=== PATIENT | male | born 1975 | race Caucasian/White ===

== ENCOUNTER 2020-03-29 13:16 | Emergency (ER) | payer OTHER ==
[2020-03-29 13:25] VITALS: TEMP 98.5
[2020-03-29 14:19] VITALS: BP 148/110; PULSE 73; RESP 22
--- NOTE | 2020-03-29 14:29 | ED ---
General Adult HPI - General Chief complaint: Skin/Abscess/Foreign Body Stated complaint: Blisters on feet Time Seen by Provider: 03/29/20 13:31 Source: patient, RN notes reviewed, old records reviewed Mode of arrival: ambulatory Limitations: no limitations - History of Present Illness Initial comments: 44-year-old male patient with the chief complaint of blisters to the heels of his feet. Also has some between the toes on the left side. Patient reports that he has bad shoes and is always on his feet at work. He believes this is the cause. He declines any other complaints. Systemic: Pt denies fatigue, fever/chills, rash. Pt denies weakness, night sweats, weight loss. Neuro: Pt denies headache, visual disturbances, syncope or pre-syncope. HEENT: Pt denies ocular discharge or irritation, otalgia, rhinorrhea, pharyngitis or notable lymphadenopathy. Cardiopulmonary: Pt denies chest pain, SOB, heart palpitations, dyspnea on exertion. Abdominal/GI: Pt denies abdominal pain, n/v/d. : Pt denies dysuria, burning w/ urination, frequency/urgency. Denies new onset urinary or bowel incontinence. MSK: Pt denies myalgia, loss of strength or function in extremities. Neuro: Pt denies new onset weakness, paresthesias. - Related Data Previous Rx's Medication Instructions Recorded Lisinopril 20 mg PO DAILY 14 Days #14 tab 03/29/20 Allergies Allergy/AdvReac Type Severity Reaction Status Date / Time Penicillins Allergy Swelling Verified 03/29/20 13:25 Review of Systems ROS Statement: Those systems with pertinent positive or pertinent negative responses have been documented in the HPI. ROS Other: All systems not noted in ROS Statement are negative. Past Medical History Past Medical History: Hypertension History of Any Multi-Drug Resistant Organisms: None Reported Past Psychological History: Anxiety Smoking Status: Current every day smoker Past Alcohol Use History: None Reported Past Drug Use History: Marijuana General Exam - General Exam Comments Initial Comments: Constitutional: NAD, AOX3, Pt has pleasant affect. HEENT: NC/AT, trachea midline, neck supple, no lymphadenopathy. External ears appear normal, without discharge. Mucous membranes moist. There is no scleral icterus. No pallor noted. Cardiopulmonary: RRR, no murmurs, rubs or gallops, no JVD noted. Lungs CTAB in anterior and posterior potts. No peripheral edema. Abdominal exam: Abdomen soft and non-distended. Abdomen non-tender to palpation in all 4 quadrants. Bowel sounds active in LLQ. No hepatosplenomegaly. No ecchymosis Neuro: CN II-XII grossly intact. No nuchal rigidity. No raccon eyes, no bell sign. MSK: Blisters are noted on heels bilaterally. There is a 2 blisters between the second and third toe on the left side. There is no rash. Skin is examined without any other dermatologic findings. No oropharyngeal involvement.. Full active ROM in upper and lower extremities. Limitations: no limitations Course Vital Signs 03/29/20 03/29/20 13:23 14:11 Temperature 98.5 F Pulse Rate 108 H 73 Respiratory 18 22 Rate Blood Pressure 186/93 148/110 O2 Sat by Pulse 98 98 Oximetry Medical Decision Making - Medical Decision Making 44-year-old male patient was ED for evaluation of blisters on feet. These do appear to be contact related due to him being at work. I advised him to get new shoes and will provide him a note for work for 3 days to allow the area to rest. Patient's blood pressure was found be elevated. Reports that he has not had his blood pressure medication as he is noted, does not have a doctor. I will prescribe the patient 2 weeks of his home dose of lisinopril and will provide him outpatient follow-up with a primary care provider. Will return to ER if condition worsens. Case discussed with Dr. Sharif. Disposition Clinical Impression: Blister Disposition: HOME SELF-CARE Condition: Stable Instructions (If sedation given, give patient instructions): Blister (ED) Additional Instructions: Recommend getting new shoes and socks. Rest the area for the next couple of da ys. Follow-up with primary care provider tomorrow. Return to ER if condition worsens. Prescriptions: Lisinopril 20 mg PO DAILY 14 Days #14 tab Is patient prescribed a controlled substance at d/c from ED?: No Referrals: None,Stated [Primary Care Provider] - 1-2 days Diego Bolivar MD [REFERRING] - 1-2 days
== END 2020-03-29 14:56 | disposition home or self-care (01) ==
LOC: EC 13:16
DX: S90.822A Blister (nonthermal), left foot, initial encounter (principal); S90.821A Blister (nonthermal), right foot, initial encounter; I10 Essential (primary) hypertension; F17.200 Nicotine dependence, unspecified, uncomplicated; Z88.0 Allergy status to penicillin; X58.XXXA Exposure to other specified factors, initial encounter
CPT/HCPCS: 99283

== ENCOUNTER 2020-08-03 23:25 | Inpatient (IN) | payer MEDICAID, OTHER ==
--- NOTE | 2020-08-04 00:24 | ED ---
Psych HPI - General Chief Complaint: Psychiatric Symptoms Stated Complaint: Mental health Time Seen by Provider: 08/03/20 23:43 Source: patient Mode of arrival: ambulatory - History of Present Illness Initial Comments: this patient is a 44-year-old man who presents with complaint of depressed mood and having suicidal thoughts. The patient states that he was in a relationship and this ended today. Patient is feeling didn't. MD Complaint: suicidal ideation, feels depressed -: hour(s) Associated Psychiatric Symptoms: none Quality: constant Improves With: none Worsens With: none Context: significant life stressor - Related Data Previous Rx's Medication Instructions Recorded lisinopriL 20 mg PO DAILY 14 Days #14 tab 03/29/20 Allergies Allergy/AdvReac Type Severity Reaction Status Date / Time Penicillins Allergy Swelling Verified 08/03/20 23:40 Review of Systems ROS Statement: Those systems with pertinent positive or pertinent negative responses have been documented in the HPI. ROS Other: All systems not noted in ROS Statement are negative. Constitutional: Denies: fever, chills Respiratory: Denies: cough, dyspnea Cardiovascular: Denies: chest pain, palpitations Gastrointestinal: Denies: abdominal pain, vomiting, diarrhea, constipation Genitourinary: Denies: dysuria, hematuria Musculoskeletal: Denies: back pain Skin: Denies: rash Neurological: Denies: headache, weakness, numbness Past Medical History Past Medical History: Hypertension Additional Past Medical History / Comment(s): pneumothorax History of Any Multi-Drug Resistant Organisms: None Reported Past Surgical History: No Surgical Hx Reported Past Psychological History: Anxiety Smoking Status: Current every day smoker Past Alcohol Use History: None Reported Past Drug Use History: Marijuana General Exam Limitations: no limitations General appearance: alert, in no apparent distress Head exam: Present: atraumatic, normocephalic Neck exam: Present: normal inspection Respiratory exam: Present: normal lung sounds bilaterally. Absent: respiratory distress, wheezes, rales, rhonchi, stridor Cardiovascular Exam: Present: regular rate, normal rhythm, normal heart sounds. Absent: systolic murmur, diastolic murmur, rubs, gallop GI/Abdominal exam: Present: soft. Absent: distended, tenderness, guarding, rebound, rigid, mass Neurological exam: Present: alert Psychiatric exam: Present: depressed, suicidal ideation. Absent: agitated, anxious, flat affect, manic, homicidal ideation Skin exam: Present: warm, dry, intact, normal color. Absent: rash Course Vital Signs 08/03/20 23:35 Temperature 98.1 F Pulse Rate 95 Respiratory 20 Rate Blood Pressure 155/68 O2 Sat by Pulse 99 Oximetry Medical Decision Making - Lab Data Lab Results 08/04/20 08/04/20 Range/Units 00:10 00:10 Urine Color Yellow Urine Appearance Clear (Clear) Urine pH 5.5 (5.0-8.0) Ur Specific [place] 1.019 (1.001-1.035) Urine Protein Negative (Negative) Urine Glucose (UA) Negative (Negative) Urine Ketones Negative (Negative) Urine Blood Negative (Negative) Urine Nitrite Negative (Negative) Urine Bilirubin Negative (Negative) Urine Urobilinogen <2.0 (<2.0) mg/dL Ur Leukocyte Esterase Negative (Negative) Urine Opiates Screen Detected H (NotDetected) Ur Oxycodone Screen Not Detected (NotDetected) Urine Methadone Screen Not Detected (NotDetected) Ur Propoxyphene Screen Not Detected (NotDetected) Ur Barbiturates Screen Not Detected (NotDetected) U Tricyclic Antidepress Not Detected (NotDetected) Ur Phencyclidine Scrn Not Detected (NotDetected) Ur Amphetamines Screen Not Detected (NotDetected) U Methamphetamines Scrn Not Detected (NotDetected) U Benzodiazepines Scrn Detected H (NotDetected) Urine Cocaine Screen Not Detected (NotDetected) U Marijuana (THC) Screen Detected H (NotDetected) Disposition Clinical Impression: Suicidal ideation, Mood disorder Disposition: ADMITTED IP TO THIS [facility] Condition: Fair Is patient prescribed a controlled substance at d/c from ED?: No
[2020-08-04 00:51] LABS: Amphetamine Screen,Urine Not Detected (NotDetected); Barbiturate Screen,Urine Not Detected (NotDetected); Benzodiazepines Screen,Urine Detected (NotDetected); Cocaine Screen,Urine Not Detected (NotDetected); Methadone Screen, Urine Not Detected (NotDetected); Opiate Screen,Urine Detected (NotDetected); Oxycodone Screen, Urine Not Detected (NotDetected); Phencyclidine Screen,Urine Not Detected (NotDetected); Tricyclic Antidepressant,Urine Not Detected (NotDetected); Urn Cannabinoid Scrn Detected (NotDetected)
[2020-08-04] MEDS ORDERED: ZIPRASIDONE 20 MG VIAL IM PRN (03:40)
[2020-08-04] MEDS ORDERED: MAG HYDROX/AL HYDROX/SIMETH 30 ML CUP PO PRN (03:40)
[2020-08-04] MEDS ORDERED: MAGNESIUM HYDROXIDE 2,400 MG/10 ML CUP PO PRN (03:40)
[2020-08-04] MEDS ORDERED: LORazepam 2 MG/ML INJ IM PRN (03:44)
[2020-08-04 04:10] LABS: Appearance,Urine Clear (Clear); Bilirubin,Urine Negative (Negative); Blood,Urine Negative (Negative); Color,Urine Yellow; Glucose,Urine (UA) Negative (Negative); Ketones,Urine Negative (Negative); Leukocyte Esterase,Urine Negative (Negative); Nitrite,Urine Negative (Negative); PH, Urine 5.5 (5.0-8.0); Protein,Urine Negative (Negative); Specific Gravity,Urine 1.019 (1.001-1.035); Urobilinogen,Urine <2.0 mg/dL (<2.0)
[2020-08-04 09:20] LABS: Basophils # (A) 0.1 k/uL (0-0.2); Basophils % (A) 1 %; Eosinophils # (A) 0.2 k/uL (0-0.7); Eosinophils % (A) 1 %; HCT 47.2 % (39.0-53.0); HGB 15.4 gm/dL (13.0-17.5); Lymphocytes % (A) 19 %; MCH 32.7 pg (25.0-35.0); MCHC 32.6 g/dL (31.0-37.0); MCV 100.1 fL (80.0-100.0); Monocytes # (A) 0.7 k/uL (0-1.0); Monocytes % (A) 7 %; Neutrophils # (A) 7.4 k/uL (1.3-7.7); Neutrophils % (A) 71 %; Platelet Count 238 k/uL (150-450); RBC 4.72 m/uL (4.30-5.90); RDW 12.7 % (11.5-15.5); WBC 10.4 k/uL (3.8-10.6)
[2020-08-04 09:53] LABS: ALT 21 U/L (4-49); AST 27 U/L (17-59); African American GFR (CKD) >90 (>60 ml/min/1.73 sqM); Albumin 3.8 g/dL (3.5-5.0); Alkaline Phosphatase 75 U/L (38-126); Anion Gap 8 mmol/L; Blood Urea Nitrogen 9 mg/dL (9-20); Carbon Dioxide 24 mmol/L (22-30); Chloride 105 mmol/L (98-107); Glucose 101 mg/dL (74-99); Non-African American GFR(CKD) >90 (>60 ml/min/1.73 sqM); Potassium 3.9 mmol/L (3.5-5.1); Sodium 137 mmol/L (137-145); Total Bilirubin 0.7 mg/dL (0.2-1.3); Total Protein 6.4 g/dL (6.3-8.2)
[2020-08-04] MEDS: NICOTINE 14MG/24HR PATCH TRANSDERM SCH (12:45)
[2020-08-04] MEDS ORDERED: OLANZapine 7.5 MG TAB PO ONE (21:00)
[2020-08-04] MEDS: traZODone HCL 50 MG TAB PO SCH (21:33)
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
[2020-08-04] MEDS: lisinopriL 20 MG TAB PO SCH (22:11)
[2020-08-05] MEDS ORDERED: OLANZapine 10 MG TAB PO SCH (09:00)
[2020-08-05] MEDS: NICOTINE 14MG/24HR PATCH TRANSDERM SCH (09:42)
[2020-08-05] MEDS: lisinopriL 20 MG TAB PO SCH (10:13)
[2020-08-05] MEDS: LORazepam 1 MG TAB PO PRN ×2 (10:15→18:45)
[2020-08-05] MEDS ORDERED: OLANZapine 10 MG TAB PO ONE (19:00)
[2020-08-05] MEDS: OLANZapine 10 MG TAB PO SCH (21:29)
[2020-08-05] MEDS: traZODone HCL 50 MG TAB PO SCH (21:29)
--- NOTE | 2020-08-06 04:32 | PN ---
PROGRESS NOTE DATE OF SERVICE: 08/05/2020. CHIEF COMPLAINT: The patient was depressed he had suicide thoughts that scared him. INTERVAL HISTORY: Patient has been doing fair. He had a quiet day yesterday. The patient mostly isolated to his room. He did not attend groups yesterday. He continued to report a lot of anxiety. He felt very distressed over the circumstances that he was dealing with. He slept fair last night. Today he has been up. He did attend one group at 1530 and seem to engage appropriately in that group. He did not attend any of the earlier groups in the day. When I talked to him, he said he was having high anxiety and that has been something he has been struggling with all day today and yesterday. He acknowledges that he has a lot to deal with with the events that have occurred and the losses he is experiencing. He feels medication has helped some. He did not otherwise voice other problems or concerns. He tolerates his psychotropic medications. MENTAL STATUS: Patient was in his room lying down when I initially saw him. He gave fair eye contact. Psychomotor activity was slowed. He answered questions with brief responses. He did not say a lot. His affect was intense and anxious. His mood depressed he was significantly distressed. There was no indication of thought disorder. He voiced no thoughts of harm. Cognition was clear. ASSESSMENT: I will continue the current diagnosis and treatment plan. The patient continues with very high anxiety and panic symptoms in part related to very high stress circumstances he has been dealing with. I will increase his Zyprexa to 10 mg 3 times a day. I reviewed medication issues with the patient. We kept the discussion limited as he was feeling quite stressed and to the point of feeling panicky. We will focus on stabilization and discharge planning. MMODL / IJN: [id number] / MTDD
[2020-08-06] MEDS: lisinopriL 20 MG TAB PO SCH (08:46)
[2020-08-06] MEDS: NICOTINE 14MG/24HR PATCH TRANSDERM SCH (08:46)
[2020-08-06] MEDS: LORazepam 1 MG TAB PO PRN (08:46)
[2020-08-06] MEDS: OLANZapine 10 MG TAB PO SCH (08:46)
[2020-08-06] MEDS ORDERED: hydrOXYzine HCL 50 MG/ML 1 ML VIAL IM PRN (09:17)
[2020-08-06] MEDS: hydrOXYzine pamoate 25 MG CAP PO PRN ×3 (10:08→21:25)
--- NOTE | 2020-08-06 10:20 | P.PN ---
Progress Note - Text Progress Note Date: 08/06/20 Interval History: Patient was seen resting in bed and was directable and agreeable to speak with fiction and nonfiction prose writer in the office. Patient expresses his primary concern is his elevated anxiety and depression. He reports that he is having problems with racing thoughts secondary to his anxiety and worry which is causing him problems with planning out his next steps after discharge. He reports that this current episode was precipitated by a relationship that did not go well prior to this admission. At this time, the patient does endorses suicidal ideation but with no plan or intention at this time. He denies any homicidal ideation, intention, and/or plan. Patient denies any auditory, visual hallucinations and denies any paranoia or delusions. Patient denies any side effects from the medications and has been compliant with meds. Mental Status Exam: General Appearance: Patient appears to be stated age is alert, directable, and cooperative. Behavior: Patient is calmly seated without any agitated behavior. Psychomotor activity is elevated. Speech: Patient's speech is fluent and nonpressured. Mood/Affect: Mood is very anxious, affect is congruent and nervous. Suicidality/Homicidality: Patient reports suicidal ideation. He denies any homicidal ideation, intention, and/or plan. Perceptions: Patient denies any visual hallucinations and denies any auditory hallucinations Though content/process: There is no evidence of any delusional thought content and thought process is linear and goal-directed. Memory and concentration: AOX3, grossly intact for the purposes of this session Judgment and insight: Improving mildly Assessment Major Depressive disorder, recurrent, severe, with anxious features. Tobacco use disorder. Plan: -Patient continues to meet criteria for inpatient psychiatric admission for symptom stabilization and safety. Patient has signed adult voluntary form and medication consent and was placed in patient's chart. -Medications: We will change Ativan when necessary to Vistaril due to patient's history of substance use. We will start doxepin 25 mg by mouth twice a day for anxiety/depression We will decrease Zyprexa to 10 mg by mouth at bedtime. We will likely transition patient to Abilify instead of Zyprexa for augmentation of his an tidepressant and treatment of racing thoughts. -When necessary Vistaril and Geodon for agitation/aggression. -NRT - nicotine patch -SW on board for discharge planning. Encouraged the patient to participate in milieu.
[2020-08-06] MEDS: traZODone HCL 50 MG TAB PO SCH (20:53)
[2020-08-06] MEDS: DOXEPIN 25 MG CAP PO SCH (20:53)
[2020-08-06] MEDS ORDERED: OLANZapine 10 MG TAB PO SCH (21:00)
[2020-08-07] MEDS: DOXEPIN 25 MG CAP PO SCH ×2 (08:34→20:39)
[2020-08-07] MEDS: NICOTINE 14MG/24HR PATCH TRANSDERM SCH (08:34)
[2020-08-07] MEDS: lisinopriL 20 MG TAB PO SCH (08:34)
[2020-08-07] MEDS: hydrOXYzine pamoate 25 MG CAP PO PRN ×3 (08:34→20:39)
--- NOTE | 2020-08-07 09:35 | P.PN ---
Progress Note - Text Progress Note Date: 08/07/20 Interval History: Patient was seen resting in bed and was directable and agreeable to speak with the fiction and nonfiction prose writer with no one else present in his room. Patient continues to express elevated anxiety. He reports he is feeling stressed out as he is uncertain where he will live. He does report that his anxiety is slightly better as he was able to plan out a course of action. Patient reports that he plans on going to [facility] for rehab for his history of methamphetamine and heroin use. He is not reporting any auditory or visual hallucinations. He denies any delusions. He has been adherent his medications and denies any side effects at this time. Mental Status Exam: General Appearance: Patient appears to be stated age is alert, directable, and cooperative. Behavior: Patient is calmly seated without any agitated behavior. Psychomotor activity is elevated. Speech: Patient's speech is fluent and nonpressured. Mood/Affect: Mood is very anxious, affect is congruent and nervous. Suicidality/Homicidality: Patient reports suicidal ideation. He denies any homicidal ideation, intention, and/or plan. Perceptions: Patient denies any visual hallucinations and denies any auditory hallucinations Though content/process: There is no evidence of any delusional thought content and thought process is linear and goal-directed. Memory and concentration: AOX3, grossly intact for the purposes of this session Judgment and insight: Improving mildly Assessment Major Depressive disorder, recurrent, severe, with anxious features. Tobacco use disorder. Plan: -Patient continues to meet criteria for inpatient psychiatric admission for symptom stabilization and safety. Patient has signed adult voluntary form and medication consent and was placed in patient's chart. -Medications: Change doxepin to 50 mg by mouth at bedtime for anxiety/depression Change Zyprexa to Abilify 10 mg by mouth daily for mood augmentation. -When necessary Vistaril and Geodon for agitation/aggression. -NRT - nicotine patch -SW on board for discharge planning. Encouraged the patient to participate in milieu.
[2020-08-07] MEDS: traZODone HCL 50 MG TAB PO SCH (20:40)
[2020-08-08] MEDS: ARIPiprazole 10 MG TAB PO SCH (08:49)
[2020-08-08] MEDS: NICOTINE 14MG/24HR PATCH TRANSDERM SCH (08:49)
[2020-08-08] MEDS: lisinopriL 20 MG TAB PO SCH (08:49)
[2020-08-08] MEDS: hydrOXYzine pamoate 25 MG CAP PO PRN ×3 (08:51→20:37)
--- NOTE | 2020-08-08 09:49 | P.PN ---
Progress Note - Text Progress Note Date: 08/08/20 Interval History: Patient was seen resting in bed and was directable and agreeable to speak with the scientific technical writer with no one else present in his room. Patient reports his anxiety has decreased but continues to be elevated at bedtime causing him to have difficulty sleeping. He reports that his mind begins to race and he feels extremely wound up and unable to sleep. He reports no suicidal or homicidal ideation, intention, and/or plan. He reports that during the day his mood symptoms appear to be better controlled. He is future-oriented and has sent a packet to [facility] for rehab. He denies any auditory or visual hallucinations. He reports no paranoia or other delusions. Mental Status Exam: General Appearance: Patient appears to be stated age is alert, directable, and cooperative. Behavior: Patient is calmly seated without any agitated behavior. Psychomotor activity is normal. Speech: Patient's speech is fluent and nonpressured. Mood/Affect: Mood is anxious, affect is congruent but more euthymic with appropriate range. Suicidality/Homicidality: Patient reports suicidal ideation. He denies any homicidal ideation, intention, and/or plan. Perceptions: Patient denies any visual hallucinations and denies any auditory hallucinations Though content/process: There is no evidence of any delusional thought content and thought process is linear and goal-directed. Memory and concentration: AOX3, grossly intact for the purposes of this session Judgment and insight: Improving mildly Assessment Major Depressive disorder, recurrent, severe, with anxious features. Tobacco use disorder. Methamphetamine use disorder Heroin use disorder Plan: -Patient continues to meet criteria for inpatient psychiatric admission for symptom stabilization and safety. Patient has signed adult voluntary form and medication consent and was placed in patient's chart. -Medications: Continue doxepin 50 mg by mouth at bedtime for anxiety/depression Continue abilify 10 mg by mouth daily for mood augmentation Change trazodone to Remeron 15 mg by mouth at bedtime for depression/insomnia -When necessary Vistaril and Geodon for agitation/aggression. -NRT - nicotine patch -SW on board for discharge planning. Encouraged the patient to participate in milieu.
[2020-08-08] MEDS: DOXEPIN 25 MG CAP PO SCH (20:36)
[2020-08-08] MEDS ORDERED: MIRTAZAPINE 15 MG TAB PO SCH (21:00)
[2020-08-09] MEDS: hydrOXYzine pamoate 25 MG CAP PO PRN ×3 (07:27→20:17)
[2020-08-09] MEDS: NICOTINE 14MG/24HR PATCH TRANSDERM SCH (08:39)
[2020-08-09] MEDS: ARIPiprazole 10 MG TAB PO SCH (08:39)
[2020-08-09] MEDS: lisinopriL 20 MG TAB PO SCH (08:40)
[2020-08-09] MEDS: ACETAMINOPHEN TAB 325 MG TAB PO PRN (08:43)
--- NOTE | 2020-08-09 09:39 | P.PN ---
Progress Note - Text Progress Note Date: 08/09/20 Interval History: Patient was seen wandering the hallways and was directable and agreeable to speak with the health underwriter with no one else present in his room. Patient continues to endorse elevated anxiety. He states that his racing thoughts have decreased but he continues to be very anxious and that his anxiety is particularly worse at night. He reports that last night he was unable to sleep as compared to the night before. He is to express that he feels extremely wound up and that the worse things will happen. He states that he would like to go to rehab. He is not endorsing any suicidal or homicidal ideation, intention, and/or plan at this time. He is reporting no auditory or visual hallucinations. He denies any issues with appetite and he has been adherent with his medications and denies any side effects at this time. Mental Status Exam: General Appearance: Patient appears to be stated age is alert, directable, and cooperative. Behavior: Patient is calmly seated without any agitated behavior. Psychomotor activity is normal. Speech: Patient's speech is fluent and nonpressured. Mood/Affect: Mood is anxious, affect is congruent with appropriate range. Suicidality/Homicidality: He denies any suicidal or homicidal ideation, intention, and/or plan. Perceptions: Patient denies any visual hallucinations and denies any auditory hallucinations Though content/process: There is no evidence of any delusional thought content and thought process is linear and goal-directed. Memory and concentration: AOX3, grossly intact for the purposes of this session Judgment and insight: Improving mildly Assessment Major Depressive disorder, recurrent, severe, with anxious features. Tobacco use disorder. Methamphetamine use disorder Heroin use disorder Plan: -Patient continues to meet criteria for inpatient psychiatric admission for symptom stabilization and safety. Patient has signed adult voluntary form and medication consent and was placed in patient's chart. -Medications: Increase doxepin to 75 mg by mouth at bedtime for anxiety/depression Continue abilify 10 mg by mouth daily for mood augmentation Increase Remeron to 30 mg by mouth at bedtime for depression/insomnia -As needed Vistaril be increased to 50 mg to address anxiety -When necessary Vistaril and Geodon for agitation/aggression. -NRT - nicotine patch -SW on board for discharge planning. Encouraged the patient to participate in milieu.
[2020-08-09 15:41] VITALS: BMI 19.5
[2020-08-09] MEDS: MIRTAZAPINE 15 MG TAB PO SCH (20:17)
[2020-08-09] MEDS ORDERED: DOXEPIN 25 MG CAP PO SCH (21:00)
[2020-08-10] MEDS: NICOTINE 14MG/24HR PATCH TRANSDERM SCH (08:28)
[2020-08-10] MEDS: lisinopriL 20 MG TAB PO SCH (08:28)
[2020-08-10] MEDS: ARIPiprazole 10 MG TAB PO SCH (08:28)
[2020-08-10] MEDS: hydrOXYzine pamoate 25 MG CAP PO PRN ×2 (08:28→14:35)
--- NOTE | 2020-08-10 10:38 | P.PN ---
Progress Note - Text Progress Note Date: 08/10/20 Interval History: Patient was seen wandering the hallways and was directable and agreeable to speak with the sign writer letterer or painter with no one else present in his room. Patient continues to endorse elevated anxiety. Despite having documented sleep, the patient reports that he wakes up multiple times at night. He reports that he would wake up every 45 minutes or so and would take half an hour at least to fall asleep again. He is not reporting any suicidal or homicidal ideation, intention, and/or plan. He reports auditory or visualizations. He denies any side effects of his medications. He reports that he has no place to go and does not feel safe being discharged as he would end up using. He states that he wants to go straight to rehab from this facility and is scheduled to be picked up on Thursday. Mental Status Exam: General Appearance: Patient appears to be stated age is alert, directable, and cooperative. Behavior: Patient is calmly seated without any agitated behavior. Psychomotor activity is slightly elevated. Speech: Patient's speech is fluent and nonpressured. Mood/Affect: Mood is anxious, affect is congruent, nervous with appropriate range. Suicidality/Homicidality: He denies any suicidal or homicidal ideation, intention, and/or plan. Perceptions: Patient denies any visual hallucinations and denies any auditory hallucinations Though content/process: There is no evidence of any delusional thought content and thought process is linear and goal-directed. Memory and concentration: AOX3, grossly intact for the purposes of this session Judgment and insight: Improving mildly Assessment Major Depressive disorder, recurrent, severe, with anxious features. Tobacco use disorder. Methamphetamine use disorder Heroin use disorder Plan: -Patient continues to meet criteria for inpatient psychiatric admission for symptom stabilization and safety. Patient has signed adult voluntary form and medication consent and was placed in patient's chart. -Medications: Increase doxepin to 100 mg by mouth at bedtime for anxiety/depression Continue abilify 10 mg by mouth daily for mood augmentation Continue Remeron to 30 mg by mouth at bedtime for depression/insomnia -As needed Vistaril 50 mg to address anxiety -When necessary Vistaril and Geodon for agitation/aggression. -NRT - nicotine patch -SW on board for discharge planning. Encouraged the patient to participate in milieu.
[2020-08-10] MEDS: MIRTAZAPINE 15 MG TAB PO SCH (20:02)
[2020-08-10] MEDS: DOXEPIN 25 MG CAP PO SCH (20:02)
[2020-08-11] MEDS: NICOTINE 14MG/24HR PATCH TRANSDERM SCH (09:06)
[2020-08-11] MEDS: ARIPiprazole 10 MG TAB PO SCH (09:06)
[2020-08-11] MEDS: lisinopriL 20 MG TAB PO SCH (09:06)
--- NOTE | 2020-08-11 09:51 | P.PN ---
Progress Note - Text Progress Note Date: 08/11/20 Interval history: Patient was seen wandering the hallways and was directable and agreeable to speak with typewriter aligner. Patient reports that he is doing well. He reports that he is excited to be discharged on Thursday and to start rehab. He reports that he was able to sleep well last night and although he had difficulty falling asleep, he has been able to sleep throughout the night. He reports continued anxiety throughout the day but states that it is manageable. At this time patient denies any suicidal or homicidal ideations intent or plan. Denies any Auditory or visual hallucinations. Patient denies any side effects from the medications and has been compliant with meds. Mental status exam: General Appearance: Patient appears to be stated age is alert, directable, and cooperative. Behavior: No agitated behavior. Patient is calm and directable Speech: Patient's speech is fluent and nonpressured. Mood/Affect: Mood is improving mildly, affect is congruent and constricted. Suicidality/Homicidality: Patient denies having any suicidal or homicidal ideation intent or plan. Perceptions: Patient denies any auditory or visual hallucinations. Though content/process: There is no evidence of any delusional thought content and thought process is linear and goal-directed. Memory and concentration: AOX3, grossly intact for the purposes of this session Judgment and insight: improving mildly Assessment/Plan: Continue with current diagnosis. Patient continues to meet criteria for inpatient psychiatric admission for symptom stabilization and safety.Patient will be maintained on current psychotropic medication regimen. Monitor for medication compliance and for any psychotropic medication side effects. Will continue to monitor ongoing response to treatment. Encouraged participation in milieu. Anticipate discharge on Thursday.
[2020-08-11] MEDS: DOXEPIN 25 MG CAP PO SCH (20:08)
[2020-08-11] MEDS: MIRTAZAPINE 15 MG TAB PO SCH (20:08)
[2020-08-12] MEDS: ARIPiprazole 10 MG TAB PO SCH (07:52)
[2020-08-12] MEDS: NICOTINE 14MG/24HR PATCH TRANSDERM SCH (07:52)
[2020-08-12] MEDS: lisinopriL 20 MG TAB PO SCH (07:52)
--- NOTE | 2020-08-12 09:17 | P.PN ---
Progress Note - Text Progress Note Date: 08/12/20 Interval history: Patient was seen wandering the hallways and was directable and agreeable to speak with real estate underwriter. Patient reports that he is doing well. He is currently not reporting any significant symptoms of depression at this time. He is reporting no suicidal or homicidal ideation, intention, and/or plan. He reports that anxiety is elevated slightly but attributes this to his discharge and going to rehab. He is not reporting any issues with sleep or appetite at this time. He denies any auditory or visual hallucinations. He reports no paranoia or delusions. His been adherent with his medications and denies any side effects. He has not been taking any Vistaril as he feels like that medication makes him feel more "jittery." Mental status exam: General Appearance: Patient appears to be stated age is alert, directable, and cooperative. Behavior: No agitated behavior. Patient is calm and directable Speech: Patient's speech is fluent and nonpressured. Mood/Affect: Mood is "pretty good." Affect is euthymic to bright. Suicidality/Homicidality: Patient denies having any suicidal or homicidal ideation intent or plan. Perceptions: Patient denies any auditory or visual hallucinations. Though content/process: There is no evidence of any delusional thought content and thought process is linear and goal-directed. Memory and concentration: AOX3, grossly intact for the purposes of this session Judgment and insight: improving mildly Assessment/Plan: Continue with current diagnosis. Patient continues to meet criteria for inpatient psychiatric admission for symptom stabilization and safety. Patient will be maintained on current psychotropic medication regimen. Monitor for medication compliance and for any psychotropic medication side effects. Will continue to monitor ongoing response to treatment. Encouraged participation in milieu. Anticipate discharge on Thursday.
[2020-08-12] MEDS: ACETAMINOPHEN TAB 325 MG TAB PO PRN (20:15)
[2020-08-12] MEDS: DOXEPIN 25 MG CAP PO SCH (20:16)
[2020-08-12] MEDS: MIRTAZAPINE 15 MG TAB PO SCH (20:16)
[2020-08-12 20:29] VITALS: TEMP 97.1
[2020-08-13] MEDS: NICOTINE 14MG/24HR PATCH TRANSDERM SCH (08:10)
[2020-08-13] MEDS: lisinopriL 20 MG TAB PO SCH (08:10)
[2020-08-13] MEDS: ARIPiprazole 10 MG TAB PO SCH (08:10)
[2020-08-13 08:28] VITALS: BP 139/92; PULSE 95; RESP 16
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
== END 2020-08-13 09:39 | DRG 885 ==
LOC: EC 23:25 → 3MHU 08-04 03:28
PROVIDERS: ADMIT Psychiatry & Neurology Psychiatry; ATTEND Psychiatry & Neurology Psychiatry
DX: F33.2 Major depressive disorder, recurrent severe without psychotic features (principal); R45.851 Suicidal ideations; F15.10 Other stimulant abuse, uncomplicated; F11.21 Opioid dependence, in remission; Z20.828 Contact with and (suspected) exposure to other viral communicable diseases; F41.9 Anxiety disorder, unspecified; I10 Essential (primary) hypertension; G47.00 Insomnia, unspecified; F12.10 Cannabis abuse, uncomplicated; F17.210 Nicotine dependence, cigarettes, uncomplicated; Z71.6 Tobacco abuse counseling; Z79.899 Other long term (current) drug therapy; Z59.0 Homelessness; Z87.09 Personal history of other diseases of the respiratory system; Z62.810 Personal history of physical and sexual abuse in childhood; Z88.0 Allergy status to penicillin
CPT/HCPCS: 80053; 80306; 81003; 82075; 84443; 85025; 99285

== ENCOUNTER 2022-06-16 13:57 | Emergency (ER) | payer OTHER ==
[2022-06-16 14:49] LABS: Basophils # (A) 0.1 k/uL (0-0.2); Basophils % (A) 1 %; Eosinophils # (A) 0.1 k/uL (0-0.7); Eosinophils % (A) 1 %; HCT 50.5 % (39.0-53.0); HGB 16.9 gm/dL (13.0-17.5); Lymphocytes # (A) 1.3 k/uL (1.0-4.8); Lymphocytes % (A) 19 %; MCH 31.8 pg (25.0-35.0); MCHC 33.5 g/dL (31.0-37.0); Mean Platelet Volume 7.2; Monocytes # (A) 0.3 k/uL (0-1.0); Monocytes % (A) 5 %; Neutrophils # (A) 4.9 k/uL (1.3-7.7); Neutrophils % (A) 73 %; Platelet Count 248 k/uL (150-450); RBC 5.32 m/uL (4.30-5.90); RDW 12.7 % (11.5-15.5); WBC 6.7 k/uL (3.8-10.6)
[2022-06-16 14:57] LABS: Partial Thromboplastin Time 25.6 sec (22.0-30.0); Prothrombin Time 10.8 sec (9.0-12.0)
[2022-06-16 14:58] LABS: ALT 22 U/L (4-49); AST 24 U/L (17-59); African American GFR (CKD) >90 (>60 ml/min/1.73 sqM); Albumin 4.5 g/dL (3.5-5.0); Alkaline Phosphatase 61 U/L (38-126); Anion Gap 10 mmol/L; Blood Urea Nitrogen 13 mg/dL (9-20); Calcium 9.4 mg/dL (8.4-10.2); Carbon Dioxide 25 mmol/L (22-30); Chloride 102 mmol/L (98-107); Glucose 108 mg/dL (74-99); Non-African American GFR(CKD) >90 (>60 ml/min/1.73 sqM); Potassium 4.1 mmol/L (3.5-5.1); Sodium 137 mmol/L (137-145); Total Bilirubin 0.9 mg/dL (0.2-1.3)
--- NOTE | 2022-06-16 15:03 | XR ---
EXAMINATION TYPE: XR chest 2V DATE OF EXAM: 06/16/2022 COMPARISON: None HISTORY: 46 year-old male shortness of breath, difficulty breathing, elevated blood pressure TECHNIQUE: PA and lateral views FINDINGS: The cardiomediastinal silhouette, aorta, and pulmonary vasculature are within normal limits. Mild hyp erinflation. Otherwise, lungs and pleural spaces are clear. IMPRESSION: Mild hyperinflation may relate to depth of inspiration or underlying emphysema. Otherwise, no acute c ardiopulmonary process.
[2022-06-16 16:24] VITALS: BP 195/121; PULSE 71; RESP 20; TEMP 98.4
[2022-06-16] MEDS ORDERED: lisinopriL 20 MG TAB PO STA (16:41)
--- NOTE | 2022-06-16 16:45 | ED ---
General Adult HPI - General Chief complaint: Shortness of Breath Stated complaint: High BP, fast heart rate Time Seen by Provider: 06/16/22 16:34 Source: patient Mode of arrival: ambulatory Limitations: no limitations - History of Present Illness Initial comments: Patient complains of anxiety and his chest. It has been going on for a while. Nothing makes it worse. He has not taken his blood pressure medications because he doesn't currently have a physician. He is not complaining of chest pain or pressure or tightness at the time of my evaluation. He has no shortness of breath. He currently has no palpitations. He has no swelling. No lighth eadedness or dizziness. - Related Data Previous Rx's Medication Instructions Recorded ARIPiprazole [Abilify] 10 mg PO DAILY 30 Days tab 08/11/20 Doxepin [SINEquan] 100 mg PO HS 30 Days cap 08/11/20 Mirtazapine [Remeron] 30 mg PO HS 30 Days tab 08/11/20 Nicotine 14Mg/24Hr Patch [Habitrol] 1 patch TRANSDERM DAILY 30 Days 08/11/20 patch lisinopriL 20 mg PO DAILY 14 Days #30 tab 08/11/20 lisinopriL 40 mg PO DAILY #30 tab 06/16/22 Allergies Allergy/AdvReac Type Severity Reaction Status Date / Time Penicillins Allergy Swelling Verified 08/04/20 04:32 Review of Systems ROS Statement: Those systems with pertinent positive or pertinent negative responses have been documented in the HPI. ROS Other: All systems not noted in ROS Statement are negative. Past Medical History Past Medical History: Hypertension Additional Past Medical History / Comment(s): pneumothorax History of Any Multi-Drug Resistant Organisms: None Reported Past Surgical History: No Surgical Hx Reported Past Psychological History: Anxiety Smoking Status: Current every day smoker Past Alcohol Use History: Occasional Past Drug Use History: Cocaine, Heroin, Marijuana, Methamphetamine - Past Family History Mother History Unknown: Yes General Exam Limitations: no limitations General appearance: alert, in no apparent distress Head exam: Present: atraumatic, normocephalic, normal inspection Eye exam: Present: normal appearance, PERRL, EOMI. Absent: scleral icterus, conjunctival injection, periorbital swelling ENT exam: Present: normal exam, mucous membranes moist Neck exam: Present: normal inspection. Absent: tenderness, meningismus, lymphadenopathy Respiratory exam: Present: normal lung sounds bilaterally. Absent: respiratory distress, wheezes, rales, rhonchi, stridor Cardiovascular Exam: Present: regular rate, normal rhythm, normal heart sounds. Absent: systolic murmur, diastolic murmur, rubs, gallop, clicks GI/Abdominal exam: Present: soft, normal bowel sounds. Absent: distended, tenderness, guarding, rebound, rigid Extremities exam: Present: normal inspection, full ROM, normal capillary refill. Absent: tenderness, pedal edema, joint swelling, calf tenderness Back exam: Present: normal inspection Neurological exam: Present: alert, oriented X3, CN II-XII intact Psychiatric exam: Present: normal affect, normal mood Skin exam: Present: warm, dry, intact, normal color. Absent: rash Course Vital Signs 06/16/22 06/16/22 14:09 16:22 Temperature 98.8 F 98.4 F Pulse Rate 92 71 Respiratory 16 20 Rate Blood Pressure 191/110 195/121 O2 Sat by Pulse 99 98 Oximetry EKG Findings - EKG Comments: EKG Findings:: Twelve-lead EKG shows ventricular rate 86 bpm, normal WI interval and QRS complexes, no ST elevation or depression, interpreted by me as normal sinus rhythm Medical Decision Making - Medical Decision Making Patient complains of several symptoms. His entire workup is unremarkable. Imaging is normal. EKG is normal. Chest x-ray is normal. Blood pressure is elevated, so I gave him a dose of his medication refilled his prescription. - Lab Data Result diagrams: 06/16/22 14:24 06/16/22 14:24 Lab Results 06/16/22 06/16/22 06/16/22 Range/Units 14:24 14:24 14:24 WBC 6.7 (3.8-10.6) k/uL RBC 5.32 (4.30-5.90) m/uL Hgb 16.9 (13.0-17.5) gm/dL Hct 50.5 (39.0-53.0) % MCV 95.0 (80.0-100.0) fL MCH 31.8 (25.0-35.0) pg MCHC 33.5 (31.0-37.0) g/dL RDW 12.7 (11.5-15.5) % Plt Count 248 (150-450) k/uL MPV 7.2 Neutrophils % 73 % Lymphocytes % 19 % Monocytes % 5 % Eosinophils % 1 % Basophils % 1 % Neutrophils # 4.9 (1.3-7.7) k/uL Lymphocytes # 1.3 (1.0-4.8) k/uL Monocytes # 0.3 (0-1.0) k/uL Eosinophils # 0.1 (0-0.7) k/uL Basophils # 0.1 (0-0.2) k/uL PT 10.8 (9.0-12.0) sec INR 1.0 (<1.2) APTT 25.6 (22.0-30.0) sec Sodium 137 (137-145) mmol/L Potassium 4.1 (3.5-5.1) mmol/L Chloride 102 (98-107) mmol/L Carbon Dioxide 25 (22-30) mmol/L Anion Gap 10 mmol/L BUN 13 (9-20) mg/dL Creatinine 0.70 (0.66-1.25) mg/dL Est GFR (CKD-EPI)AfAm >90 (>60 ml/min/1.73 sqM) Est GFR (CKD-EPI)NonAf >90 (>60 ml/min/1.73 sqM) Glucose 108 H (74-99) mg/dL Calcium 9.4 (8.4-10.2) mg/dL Total Bilirubin 0.9 (0.2-1.3) mg/dL AST 24 (17-59) U/L ALT 22 (4-49) U/L Alkaline Phosphatase 61 (38-126) U/L Troponin I (0.000-0.034) ng/mL Total Protein 7.0 (6.3-8.2) g/dL Albumin 4.5 (3.5-5.0) g/dL 06/16/22 Range/Units 14:24 WBC (3.8-10.6) k/uL RBC (4.30-5.90) m/uL Hgb (13.0-17.5) gm/dL Hct (39.0-53.0) % MCV (80.0-100.0) fL MCH (25.0-35.0) pg MCHC (31.0-37.0) g/dL RDW (11.5-15.5) % Plt Count (150-450) k/uL MPV Neutrophils % % Lymphocytes % % Monocytes % % Eosinophils % % Basophils % % Neutrophils # (1.3-7.7) k/uL Lymphocytes # (1.0-4.8) k/uL Monocytes # (0-1.0) k/uL Eosinophils # (0-0.7) k/uL Basophils # (0-0.2) k/uL PT (9.0-12.0) sec INR (<1.2) APTT (22.0-30.0) sec Sodium (137-145) mmol/L Potassium (3.5-5.1) mmol/L Chloride (98-107) mmol/L Carbon Dioxide (22-30) mmol/L Anion Gap mmol/L BUN (9-20) mg/dL Creatinine (0.66-1.25) mg/dL Est GFR (CKD-EPI)AfAm (>60 ml/min/1.73 sqM) Est GFR (CKD-EPI)NonAf (>60 ml/min/1.73 sqM) Glucose (74-99) mg/dL Calcium (8.4-10.2) mg/dL Total Bilirubin (0.2-1.3) mg/dL AST (17-59) U/L ALT (4-49) U/L Alkaline Phosphatase (38-126) U/L Troponin I <0.012 (0.000-0.034) ng/mL Total Protein (6.3-8.2) g/dL Albumin (3.5-5.0) g/dL Disposition Clinical Impression: Hypertension Disposition: HOME SELF-CARE Condition: Good Instructions (If sedation given, give patient instructions): Hypertension (ED) Prescriptions: lisinopriL 40 mg PO DAILY #30 tab Is patient prescribed a controlled substance at d/c from ED?: No Referrals: None,Stated [Primary Care Provider] - 1-2 days Anup Nolan MD [STAFF PHYSICIAN] - 1-2 days
== END 2022-06-16 17:00 | disposition home or self-care (01) ==
LOC: EC 13:57
DX: I10 Essential (primary) hypertension (principal); F17.200 Nicotine dependence, unspecified, uncomplicated; Z88.0 Allergy status to penicillin
CPT/HCPCS: 36415; 71046; 80053; 84484; 85025; 85610; 85730; 93005; 99284